=== PATIENT | female | born 1990 ===

== ENCOUNTER 2018-12-08 18:58 | Emergency (ER) | payer SELFPAY ==
[2018-12-08 19:08] VITALS: O2SAT 100
[2018-12-08] MEDS ORDERED: Sodium Chloride 0.9% 1,000 ML IV STA ×2 (20:06→23:27)
--- NOTE | 2018-12-08 20:12 | ED PDOC ---
Syncope/Near Syncope/Dizziness Time Seen by Provider: 12/08/18 19:53 Chief Complaint (Nursing): Syncope Chief Complaint (Provider): dizziness History Per: Patient History/Exam Limitations: no limitations Onset/Duration Of Symptoms: Hrs Current Symptoms Are (Timing): Better Activity At Onset Of Symptoms: Sitting Additional Complaint(s): 28 y/o female brought in by EMS for evaluation of near syncopal episode. Patient states she had just go to her second job and was sitting down when she felt dizzy, short of breath, and her heart racing fast. Symptoms lasted a few minutes before resolving. Patient states she has had these symptoms before, unknown if related to stress or anxiety, has never followed up for it. Patient states she feels slightly overwhelmed working two jobs for the last few months, but otherwise denies feeling stressed or worries. Denies fever, headache, extremity numbness/weakness, chest pain, nausea/vomiting, abdominal pain, changes in bowel movements, leg pain/swelling. Past Medical History Reviewed: Historical Data, Nursing Documentation, Vital Signs Vital Signs: Last Vital Signs Temp 98.0 F 12/08/18 19:04 Pulse 88 12/08/18 19:04 Resp 15 12/08/18 19:04 BP 141/106 H 12/08/18 19:04 Pulse Ox 100 12/08/18 19:04 - Medical History PMH: Asthma, Seizures - Surgical History Surgical History: No Surg Hx - Family History Family History: States: No Known Family Hx - Allergies Allergies/Adverse Reactions: Allergies Allergy/AdvReac Type Severity Reaction Status Date / Time No Known Allergies Allergy Verified 12/08/18 19:09 Review of Systems ROS Statement: Except As Marked, All Systems Reviewed And Found Negative Cardiovascular: Positive for: Palpitations Respiratory: Positive for: Shortness of Breath Neurological: Positive for: Dizziness Physical Exam - Reviewed Nursing Documentation Reviewed: Yes Vital Signs Reviewed: Yes - Physical Exam Appears: Positive for: Well, Non-toxic, Uncomfortable (crying) Head Exam: Positive for: ATRAUMATIC, NORMAL INSPECTION, NORMOCEPHALIC Skin: Positive for: Normal Color Eye Exam: Positive for: Normal appearance, EOMI, PERRL ENT: Positive for: Normal ENT Inspection Cardiovascular/Chest: Positive for: Regular Rate, Rhythm Respiratory: Positive for: Normal Breath Sounds Gastrointestinal/Abdominal: Positive for: Normal Exam Back: Positive for: Normal Inspection Extremity: Positive for: Normal ROM Neurologic/Psych: Positive for: Alert, Oriented (x3) - Laboratory Results Result Diagrams: 12/08/18 21:12 12/08/18 21:12 - ECG O2 Sat by Pulse Oximetry: 100 - Progress ED Course And Treament: -upreg -cbc -cmp -ekg -IV NS bolus As per boyiend, patient was crying and started hyperventilating and then "passed out" for a few seconds while in exam room on stretcher 23:20 Event witnessed by service writer advisor; patient started hyperventilating and then passed out. second IV fluid bolus given, oxygen bag mask placed to force patient to not hyperventilate CT head ordered to r/out intracranial abnormality CT SCAN OF THE BRAIN WITHOUT IV CONTRAST CLINICAL INDICATION: Syncope. TECHNIQUE: Axial and reformatted sagittal and coronal images of the brain obtained without IV contrast administration. Normal size of the ventricles and extra-axial spaces for the patient's age. Normal white matter tracts of the supratentorial brain. Normal basal ganglia and thalami. Normal brainstem. Normal cerebellum. There is no demonstrated extra-axial, intraparenchymal, or intraventricular hemorrhage. There are no findings of an acute ischemic infarction. Normal calvarium. There is no demonstrated fracture. Normal soft tissue structures. Normal visualized paranasal sinuses. IMPRESSION: Normal unenhanced CT scan of the brain On re-eval, patient resting comfortably; states she is feeing better. Patient educated on findings, discharged with instructions to follow up with PMD within 2-3 days Educated on breathing techniques Return precautions given Disposition - Clinical Impression Clinical Impression: Hyperventilating, Syncope, Anxiety - Patient ED Disposition Is Patient to be Admitted: No Counseled Patient/Family Regarding: Studies Performed, Diagnosis, Need For Followup - Disposition Referrals: [facility] [Outside] Disposition: Routine/Home Disposition Time: 02:12 Condition: IMPROVED Instructions: Syncope (Fainting), Hyperventilation, Anxiety, Adult (DC) Forms: [employer] ([place]ish), [facility] ED School/Work Excuse
[2018-12-08 21:16] LABS: BASO % 0.2 % (0.0-2.0); EOS # 0.1 K/uL (0.0-0.7); EOS % 0.8 % (0.0-4.0); HEMOGLOBIN 12.9 g/dL (12.0-16.0); LYMPH # 1.3 K/uL (1.0-4.3); LYMPH % 13.3 % (20.0-40.0); MEAN PLATELET VOLUME 9.9 fl (7.2-11.7); MONO # 0.5 K/uL (0.0-0.8); MONO % 4.6 % (0.0-10.0); NEUT # 8.2 K/uL (1.8-7.0); NEUT % 81.1 % (50.0-75.0); NRBC % 0.1 % (0.0-0.0); RBC 5.15 Mil/uL (3.80-5.20); RED CELL DISTRIBUTION WIDTH 16.3 % (11.5-14.5); WHITE BLOOD COUNT 10.1 K/uL (4.8-10.8)
[2018-12-08 21:39] LABS: ALB/GLOB RATIO 1.1 (1.0-2.1); ALBUMIN 4.6 g/dL (3.5-5.0); ALT/SGPT 22 U/L (9-52); AST/SGOT 29 U/L (14-36); BLOOD UREA NITROGEN 11 mg/dl (7-17); CALCIUM 9.7 mg/dL (8.4-10.2); GFR NON-AFRICAN AMERICAN > 60
[2018-12-09 01:10] LABS: BARBITURATES, UR NEGATIVE (NEGATIVE); BENZODIAZEPINES, UR NEGATIVE (NEGATIVE); OPIATES, UR NEGATIVE (NEGATIVE); PHENCYCLIDINE, UR NEGATIVE (NEGATIVE)
[2018-12-09 02:59] VITALS: BP 133/81; PULSE 100; RESP 18; TEMP 98.5
--- NOTE | 2018-12-09 11:07 | CT ---
Date of service: 12/09/2018 PROCEDURE: CT HEAD WITHOUT CONTRAST. HISTORY: syncope COMPARISON: None available. TECHNIQUE: Axial computed tomography images were obtained through the head/brain without intravenous contrast. Radiation dose: Total exam DLP = 731.97 mGy-cm. This CT exam was performed using one or more of the following dose reduction techniques: Automated exposure control, adjustment of the mA and/or kV according to patient size, and/or use of iterative reconstruction technique. FINDINGS: HEMORRHAGE: No intracranial hemorrhage. BRAIN: No mass effect or edema. No atrophy or chronic microvascular ischemic changes. VENTRICLES: Unremarkable. No hydrocephalus. CALVARIUM: Unremarkable. PARANASAL SINUSES: Unremarkable as visualized. No significant inflammatory changes. MASTOID AIR CELLS: Unremarkable as visualized. No inflammatory changes. OTHER FINDINGS: Dysconjugate gaze. IMPRESSION: No acute intracranial pathology.
--- NOTE | 2018-12-09 13:53 | CARD ---
APPROVED REPORT Date of service: 12/08/2018 EKG Measurement Heart [id number] <Conclusion> Sinus rhythm with premature atrial complexes Otherwise normal ECG
== END 2018-12-09 02:24 | disposition home or self-care (01) ==
LOC: H.ER 18:58
DX: R55 Syncope and collapse (principal); F41.9 Anxiety disorder, unspecified; R06.4 Hyperventilation
CPT/HCPCS: 70450; 80053; 81025; 85025; 93005; 96361; 96374; 99285; G0480; J2405; J7030